=== PATIENT | female | born 1955 | race Caucasian/White ===

== ENCOUNTER → 2020-06-20 | Emergency (ER) | payer OTHER ==
[~2020-06-20] VITALS: Ht 160 cm; Wt 79.4 kg
[~2020-06-20] MED LIST: DOLOGEN CAPLET1 EACH PO; LEVOTHYROXINE25 MCG; MEDROLPACK PO; NEURONTIN800 MG; PROZAC10 MG; TUSNEL LIQUID178 ML PO; ZITHROMAX500 MG PO
== END | disposition home or self-care (01) ==
LOC: ER 16:13
DX: U07.1 COVID-19 (principal); B34.9 Viral infection, unspecified